=== PATIENT | female | born 1970 | race Caucasian/White ===

== ENCOUNTER 2022-09-18 18:21 | Emergency (ER) | payer BC ==
[2022-09-18] MEDS ORDERED: ALTEPLASE IV STA (19:02)
[2022-09-18] MEDS ORDERED: INFUSION IV STA (19:02)
[2022-09-18] MEDS ORDERED: Iopamidol 755 MG/ML 500 ML Multipack Bottle IVPUSH STA (19:13)
[2022-09-18 20:20] LABS: CARBON DIOXIDE,CO2 24.3 mmol/L (21.0-32.0); POTASSIUM,K 3.8 mmol/L (3.5-5.1)
== END 2022-09-18 20:00 ==
LOC: MW.ED 18:21
DX: I63.9 Cerebral infarction, unspecified (principal); Z88.2 Allergy status to sulfonamides
CPT/HCPCS: 36415; 37195; 70450; 70496; 70498; 80053; 85025; 85730; 99285; J2997; Q9967

== ENCOUNTER 2025-04-18 10:31 | Emergency (ER) | payer BC ==
[2025-04-18 11:27] LABS: APPEARANCE,URINE CLEAR; GLUCOSE,URINE NEGATIVE (NEGATIVE); OCCULT BLOOD,URINE LARGE (NEGATIVE)
[2025-04-18 11:40] LABS: EPITHELIAL CELLS,URINE FEW (NONE-FEW)
== END 2025-04-18 12:36 | disposition home or self-care (01) ==
LOC: MW.ED 10:31
DX: N30.90 Cystitis, unspecified without hematuria (principal); Z88.2 Allergy status to sulfonamides; Z79.899 Other long term (current) drug therapy
CPT/HCPCS: 81001; 99283